=== PATIENT | female | born 1975 | race Caucasian/White ===

== ENCOUNTER 2018-04-07 10:58 | Emergency (ER) | payer OTHER ==
[~2018-04-07] VITALS: Ht 170.2 cm; Wt 83.9 kg
[~2018-04-07 10:58] MED LIST: CIPROFLOXACIN500 M1 PO; MEDROLDOSEPACK PO; MOTION RELIEF25 MG PO; NOHOMEMEDICATIONS; TRAMADOL 50 MG50 MG PO; VENTOLIN HFA 1818 GM INH; VYVANSE10 MG PO
[2018-04-07] MEDS ORDERED: ADDERALL 5 MG TA5 M1 PO (11:08)
[2018-04-07 11:33] LABS: URINE BLOOD NEGATIVE (Negative); URINE CLARITY CLEAR; URINE COLOR YELLOW; URINE GLUCOSE-RANDOM NEGATIVE (Negative); URINE KETONES 1+ (Negative); URINE LEUKOCYTES-REFLEX NEGATIVE (Negative); URINE NITRITE-REFLEX NEGATIVE (Negative); URINE PROTEIN NEGATIVE (Negative); URINE SPECIFIC GRAVITY 1.025 (1.005-1.030); URINE UROBILINOGEN 0.2 E.U./dl (0.2-1.0)
[2018-04-07 11:36] LABS: ICTOTEST (BILI CONFIRMATORY) Negative (Negative); URINE BILIRUBIN 1+ (Negative)
[2018-04-07 11:36] LABS: ABSOLUTE LYMPHOCYTES 0.7 thou/uL (0.8-5.3); ABSOLUTE MONOCYTES 0.4 thou/uL (0.0-1.2); BASOPHILS 0.6 %; EOSINOPHILS 0.7 %; HEMATOCRIT 44.4 % (37.0-47.0); HEMOGLOBIN 15.2 gm/dL (12.0-15.0); LYMPHOCYTES 13.7 %; MCH 32.4 pg (26.0-34.0); MCHC 34.1 g/dL (28.0-37.0); MONOCYTES 8.6 %; MPV 9.6 fl. (7.2-11.1); NUCLEATED RBCS 0 /100WBC; PLATELET COUNT* 179 thou/uL (150-400); POLYS 76.4 %; RBC 4.68 mil/uL (4.20-5.00); RDW-CV 13.6 % (10.5-14.5); WBC 5.2 thou/uL (4.0-11.0)
[2018-04-07 11:41] LABS: CALCIUM 8.4 mg/dL (8.5-10.1); CREATININE 0.9 mg/dL (0.6-1.3); POTASSIUM 3.7 mmol/L (3.5-5.1)
[2018-04-07 11:46] LABS: ALBUMIN 3.7 g/dL (3.4-5.0); TOTAL BILIRUBIN 1.1 mg/dL (<0.1-1.0); TOTAL PROTEIN 7.1 g/dL (6.4-8.2)
[2018-04-07] MEDS ORDERED: ZOFRAN ODT4 MG PO (11:50)
[2018-04-07 12:03] VITALS: BP 102/63
== END 2018-04-07 12:05 | disposition home or self-care (01) ==
LOC: M.ERS 10:58
PROVIDERS: Emergency Medicine Emergency Medical Services
DX: E86.0 Dehydration (principal); Z88.8 Allergy status to other drugs, medicaments and biological substances

== ENCOUNTER 2019-04-07 19:15 | Emergency (ER) | payer OTHER ==
[~2019-04-07] VITALS: Ht 170.2 cm; Wt 86.2 kg
[~2019-04-07 19:15] MED LIST changes: +ADDERALL 5 MG TA5 M1 PO; +ZOFRAN ODT4 MG PO
[2019-04-07] MEDS ORDERED: ACETAMINOPHEN-1 EAC1 PO (20:22)
[2019-04-07 20:39] VITALS: BP 120/70
== END 2019-04-07 20:40 | disposition home or self-care (01) ==
LOC: M.ERS 19:15
DX: M79.675 Pain in left toe(s) (principal); Z98.51 Tubal ligation status; Z88.8 Allergy status to other drugs, medicaments and biological substances